=== PATIENT | male | born 1980 | race Caucasian/White ===

== ENCOUNTER 2017-07-08 09:41 | Emergency (ER) | payer OTHER ==
[2017-07-08 09:46] VITALS: RESP 18
[2017-07-08] MEDS ORDERED: DIPH,PERTUS(ACELL)TETVAC-LF 0.5 ML VIAL IM ONE (09:55)
[2017-07-08] MEDS ORDERED: AMOXIC-POT CLAV 875MG STARTER 2 EACH TABLET PO STA (09:55)
--- NOTE | 2017-07-08 10:00 | ED ---
Skin/Abscess/FB HPI - General Chief complaint: Skin/Abscess/Foreign Body Stated complaint: Dog bite Time Seen by Provider: 07/08/17 09:48 Source: patient, RN notes reviewed, old records reviewed Mode of arrival: ambulatory Limitations: no limitations - History of Present Illness Initial comments: This is a 36-year-old male presenting to the emergency department with chief complaint of the left thumb dog bite. 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 Patient reports that the neighbor' s dog came up and he was about the pad at when the doctor decided by his thumb. Patient states that he believes the dog is up-to-date on vaccinations. He reports that he has full range of motion of the thumb. He states that the bleeding is well controlled. He does not know the status of his tetanus vaccination. Patient denies any ALLERGIES to antibiotics. - Related Data Previous Rx's Medication Instructions Recorded Amoxicillin/Potassium Clav 1 tab PO Q12HR #20 tab 07/08/17 [Augmentin 875-125 Tablet] Allergies Allergy/AdvReac Type Severity Reaction Status Date / Time No Known Allergies Allergy Verified 07/08/17 09:46 Review of Systems ROS Statement: Those systems with pertinent positive or pertinent negative responses have been documented in the HPI. ROS Other: All systems not noted in ROS Statement are negative. Past Medical History Past Medical History: No Reported History History of Any Multi-Drug Resistant Organisms: None Reported Past Surgical History: No Surgical Hx Reported Past Psychological History: Anxiety Smoking Status: Never smoker Past Alcohol Use History: Occasional Past Drug Use History: None Reported General Exam - General Exam Comments Initial Comments: This is a 36-year-old male. Patient does not appear to be in any acute distress. Limitations: no limitations General appearance: alert, in no apparent distress Head exam: Present: atraumatic, normocephalic, normal inspection Eye exam: Present: normal appearance, PERRL, EOMI. Absent: scleral icterus, conjunctival injection, periorbital swelling ENT exam: Present: normal exam, mucous membranes moist Neck exam: Present: normal inspection. Absent: tenderness, meningismus, lymphadenopathy Respiratory exam: Present: normal lung sounds bilaterally. Absent: respiratory distress, wheezes, rales, rhonchi, stridor Cardiovascular Exam: Present: regular rate, normal rhythm, normal heart sounds. Absent: systolic murmur, diastolic murmur, rubs, gallop, clicks GI/Abdominal exam: Present: soft, normal bowel sounds. Absent: distended, tenderness, guarding, rebound, rigid Extremities exam: Present: normal inspection, full ROM, normal capillary refill. Absent: tenderness, pedal edema, joint swelling, calf tenderness Left Elbow exam: Present: normal inspection, full ROM Forearm Wrist exam: Present: normal inspection, full ROM Hand Wrist exam: Present: full ROM, laceration (0.5 cm puncture wound over the thenar aspect of the left thumb. Also a second puncture wound over the dorsal first metacarpal.). Absent: normal inspection Neuro motor exam: Present: wrist extension intact, thumb opposition intact, thumb IP flexion intact, thumb adduction intact, fingers 2-5 abduction intact Vascular: Present: normal capillary refill Back exam: Present: normal inspection Neurological exam: Present: alert, oriented X3, CN II-XII intact Psychiatric exam: Present: normal affect, normal mood Skin exam: Present: warm, dry, intact, normal color. Absent: rash Course Vital Signs 07/08/17 09:44 Temperature 97.5 F L Pulse Rate 66 Respiratory 18 Rate Blood Pressure 155/101 O2 Sat by Pulse 97 Oximetry Medical Decision Making - Medical Decision Making 6-year-old male chief complaint of dog bite over the left thumb. Patient has full range of motion. Normal sensation. He has 2 puncture wounds over the left dorsal and anterior thumb and thenar eminence. Patient's lacerations are well approximated and had stopped bleeding. Discussed that I do not want to close them as it will lead to further infection. Wound was thoroughly irrigated with normal saline and Betadine. Patient was given a sterile dressing and antibiotic overtop. Discussed that he needs to completely anabiotic prescription. Patient agrees to treatment plan will comply. Return parameters were discussed. He was also given an updated tetanus vaccination. He does state that he does not want the rabies vaccine prophylaxis. Disposition Clinical Impression: Dog bite of left thumb Disposition: HOME SELF-CARE Condition: Good Instructions: Animal Bite (ED) Additional Instructions: Patient is to rest, increase fluids. Take the antibiotics as directed. Monitor for any signs of infection including redness swelling or drainage. Return to the emergency department if no signs to occur. Prescriptions: Amoxicillin/Potassium Clav [Augmentin 875-125 Tablet] 1 tab PO Q12HR #20 tab Referrals: Glenn Novak DO [Primary Care Provider] - 1-2 days Time of Disposition: 10:05
[2017-07-08 10:32] VITALS: BP 126/80; PULSE 69; TEMP 97.1
== END 2017-07-08 10:37 | disposition home or self-care (01) ==
LOC: EC 09:41
DX: S61.032A Puncture wound without foreign body of left thumb without damage to nail, initial encounter (principal); Z23 Encounter for immunization; W54.0XXA Bitten by dog, initial encounter; Y93.01 Activity, walking, marching and hiking; Y92.096 Garden or yard of other non-institutional residence as the place of occurrence of the external cause
CPT/HCPCS: 90471; 90715; 99283

== ENCOUNTER 2019-06-04 23:43 | Emergency (ER) | payer OTHER ==
[2019-06-04 23:47] VITALS: RESP 18
[2019-06-05] MEDS ORDERED: LIDOCAINE 1% INJ 10MG/ML (20 ML MDV) SQ ONE (00:32)
--- NOTE | 2019-06-05 02:25 | ED ---
General Adult HPI - General Chief complaint: Wound/Laceration Stated complaint: Rt Finger Lac Time Seen by Provider: 06/05/19 00:25 Source: patient Mode of arrival: ambulatory Limitations: no limitations - History of Present Illness Initial comments: Patient is a 38-year-old male presents emergency Department with a laceration to right third digit. Patient reports that a few hours ago he was at a fair while holding a glass [employer] bottle slipped and lacerated his finger. Patient reports mild bleeding from the site of injury. Patient reports full range of motion and the third digit and denies any numbness or tingling. Patient denies erythema, edema or skin discoloration. Patient is not on blood thinners. Patient reports his tetanus status is up-to-date. Patient denies taking medication to alleviate his symptoms. - Related Data Previous Rx's Medication Instructions Recorded Amoxicillin/Potassium Clav 1 tab PO Q12HR #20 tab 07/08/17 [Augmentin 875-125 Tablet] Allergies Allergy/AdvReac Type Severity Reaction Status Date / Time No Known Allergies Allergy Verified 07/08/17 10:10 Review of Systems ROS Statement: Those systems with pertinent positive or pertinent negative responses have been documented in the HPI. ROS Other: All systems not noted in ROS Statement are negative. Past Medical History Past Medical History: No Reported History History of Any Multi-Drug Resistant Organisms: None Reported Past Surgical History: No Surgical Hx Reported Past Psychological History: Anxiety Smoking Status: Never smoker Past Alcohol Use History: Occasional Past Drug Use History: None Reported General Exam Limitations: no limitations General appearance: alert, in no apparent distress Head exam: Present: atraumatic, normocephalic, normal inspection Eye exam: Present: normal appearance, PERRL, EOMI Pupils: Present: normal accommodation ENT exam: Present: normal exam, normal oropharynx, mucous membranes moist, TM's normal bilaterally, normal external ear exam Neck exam: Present: normal inspection, full ROM Respiratory exam: Present: normal lung sounds bilaterally Cardiovascular Exam: Present: regular rate, normal rhythm, normal heart sounds Extremities exam: Present: normal inspection, full ROM, tenderness (Tenderness at the site of laceration), normal capillary refill, other (+2 and radial pulses bilaterally) Back exam: Present: normal inspection, full ROM Neurological exam: Present: alert, oriented X3 Psychiatric exam: Present: normal affect, normal mood Skin exam: Present: warm, intact, normal color Course Vital Signs 06/04/19 06/05/19 23:45 02:39 Temperature 98 F 97.3 F L Pulse Rate 87 88 Respiratory 18 18 Rate Blood Pressure 118/70 133/72 O2 Sat by Pulse 99 99 Oximetry Procedures - Laceration Laceration #1 Consent Obtained: verbal consent Indication: laceration Site: other (Digit, third right) Size (cm): 2 Description: linear Depth: simple, single layer Sedation/Analgesia: none Anesthetic Used: lidocaine 1% Anesthesia Technique: local infiltration Amount (mls): 5 Pre-repair: irrigated extensively Type of Sutures: nylon Size of Sutures: 4-0 Number of Sutures: 4 Technique: simple, interrupted Patient Tolerated Procedure: well Medical Decision Making - Medical Decision Making Patient is a 38-year-old male presents emergency Department with a laceration to his right third digit. Laceration site was repaired with 4 nylon sutures. Patient tolerated the procedure well. The laceration site was thoroughly irrigated. Patient advised to return to emergency department for suture removal in 10 days or sooner if symptoms worsen. Strict return parameters were thoroughly discussed the patient was understanding and agreeable. Patient advised to follow proper wound care structures. Patient advised to follow primary care. Case discussed with physician. Disposition Clinical Impression: Laceration Disposition: HOME SELF-CARE Condition: Stable Instructions (If sedation given, give patient instructions): Care For Your Stitches (DC), Laceration (DC) Additional Instructions: Please follow proper wound care structures. Please return to emergency department for suture removal in 10 days or sooner if symptoms worsen. Please follow up with primary care. Is patient prescribed a controlled substance at d/c from ED?: No Referrals: Glenn Novak DO [Primary Care Provider] - 1-2 days Time of Disposition: 02:25
[2019-06-05 02:40] VITALS: BP 133/72; PULSE 88; TEMP 97.3
[2019-06-08] MEDS ORDERED: SODIUM CHLORIDE 0.9% IRRIG 1,000 ML BTL IRRIGATION ONE (04:14)
== END 2019-06-05 02:39 | disposition home or self-care (01) ==
LOC: EC 23:43
DX: S61.212A Laceration without foreign body of right middle finger without damage to nail, initial encounter (principal); W25.XXXA Contact with sharp glass, initial encounter
CPT/HCPCS: 12001; 99282; J2001

== ENCOUNTER 2022-11-17 11:31 | Emergency (ER) | payer OTHER ==
[2022-11-17 11:41] VITALS: BP 133/74; PULSE 64; RESP 20; TEMP 98.4
[2022-11-17] MEDS ORDERED: PROPARACAINE 0.5% OPHTH DROPS 15 ML BTL LEFT EYE STA (11:56)
--- NOTE | 2022-11-17 12:00 | ED ---
Eye Problem HPI - General Chief complaint: Eye Problems Stated complaint: foreign object lt eye Time Seen by Provider: 11/17/22 11:51 Source: patient, RN notes reviewed Mode of arrival: ambulatory Limitations: no limitations - History of Present Illness Initial comments: This is a pleasant well-appearing 42-year-old male that presents to the emergency room with complaints of foreign body in his left eye. Patient states that he believes it's a granule from a shingle. States took his shirt off last night and he felt something get in his eye. Took his contact lens out but was unable to relieve this sensation. Went to bed and woke up this morning with irritation. Went to urgent care they were unable to remove the foreign body recommended he come to the emergency room. MD chief complaint: foreign body -: hour(s) (last night) Onset Description: sudden Location: left eye Severity scale (1-10): 2 Consistency: constant Context: contact lens use Associated Symptoms: none Treatments Prior to Arrival: irrigated eye, removed contact lens, other (Urgent care) - Related Data Patient Tetanus UTD: Yes Previous Rx's Medication Instructions Recorded Amoxicillin/Potassium Clav 1 tab PO Q12HR #20 tab 07/08/17 [Augmentin 875-125 Tablet] Ciprofloxacin Ophth Soln [Ciloxan 2 drops LEFT EYE QID 5 Days #2.5 ml 11/17/22 0.3% Ophth Soln] Allergies Allergy/AdvReac Type Severity Reaction Status Date / Time No Known Allergies Allergy Verified 11/17/22 11:41 Review of Systems ROS Statement: Those systems with pertinent positive or pertinent negative responses have been documented in the HPI. ROS Other: All systems not noted in ROS Statement are negative. Past Medical History Past Medical History: No Reported History History of Any Multi-Drug Resistant Organisms: None Reported Past Surgical History: No Surgical Hx Reported Past Psychological History: Anxiety Smoking Status: Never smoker Past Alcohol Use History: Occasional Past Drug Use History: None Reported General Exam Limitations: no limitations General appearance: alert, in no apparent distress Head exam: Present: atraumatic, normocephalic Eye exam: Present: normal appearance, PERRL, EOMI, conjunctival injection (left). Absent: scleral icterus, nystagmus, periorbital swelling, periorbital tenderness ENT exam: Present: mucous membranes moist Respiratory exam: Absent: respiratory distress, accessory muscle use Cardiovascular Exam: Present: regular rate GI/Abdominal exam: Present: soft Neurological exam: Present: alert, oriented X3 Psychiatric exam: Present: normal affect, normal mood Skin exam: Present: warm, dry, normal color. Absent: cyanosis, diaphoretic Course Vital Signs 11/17/22 11/17/22 11:39 13:00 Temperature 98.4 F 98.4 F Pulse Rate 64 64 Respiratory 20 20 Rate Blood Pressure 133/74 133/74 O2 Sat by Pulse 99 99 Oximetry Procedures - Forgein Body Removal Eye Site: Left Anesthetic Used: Proparacaine Eye Exam Technique: Nieves Lamp, Fluorescein Foreign Body Suspected: Other Forgein Body Removal Technique: Cotton Swab Remaining Debris: No Patient Tolerated: no complications Medical Decision Making - Medical Decision Making Foreign body was removed with a Q-tip. Denies any vision changes. Denies any pain. There is a mild abrasion at 5:00 patient will be treated with antibiotic drops and directed to follow-up with ophthalmology as needed. Tetanus shot is up-to-date. Patient directed to wear glasses until finished with antibiotic drops before wearing contact lenses again. He is agreeable with this plan of care Case discussed with Dr Horton. Disposition Clinical Impression: Corneal abrasion, left Disposition: HOME SELF-CARE Condition: Good Instructions (If sedation given, give patient instructions): Abrasion (ED) Additional Instructions: Use antibiotics drops as prescribed. Do not wear contact lenses while using medication. Follow-up with ophthalmology next week as needed. Return to the emergency room with any new or concerning symptoms. Prescriptions: Ciprofloxacin Ophth Soln [Ciloxan 0.3% Ophth Soln] 2 drops LEFT EYE QID 5 Days #2.5 ml Is patient prescribed a controlled substance at d/c from ED?: No Referrals: Glenn Novak DO [Primary Care Provider] - 1-2 days Donn Cornelius MD [STAFF PHYSICIAN] - 1-2 days Time of Disposition: 12:56
[2022-11-17] MEDS ORDERED: FLUORESCEIN STRIPS 1 MG STRIP LEFT EYE ONE (12:17)
== END 2022-11-17 13:02 | disposition home or self-care (01) ==
LOC: EC 11:31
DX: T15.02XA Foreign body in cornea, left eye, initial encounter (principal); F41.9 Anxiety disorder, unspecified
CPT/HCPCS: 65222; 99283